=== PATIENT | male | born 1945 | race Caucasian/White ===

== ENCOUNTER 2016-03-15 16:47 | Emergency (ER) | payer OTHER ==
[~2016-03-15] VITALS: Ht 175.3 cm; Wt 90.1 kg
[~2016-03-15 16:47] MED LIST: ADULT LOW DOSE81 MG PO; B-6; BLOOD PRESSURE MED; NIACIN 50 MG TA50 MG PO; VITAMIN C100 MG PO
[2016-03-15 17:11] LABS: HEMATOCRIT 45.8 % (38.0-50.0); MCH 33.4 PG (29.0-34.0); MCHC 35.6 G/DL (30.0-36.0); MCV 93.9 FL (86-99); MEAN PLAT.VOLUME 8.5 uM^3 (9.0-12.4); PLATELET COUNT 192 K/uL (156-360); RBC DIS.WIDTH-CV 15.2 % (11.8-14.6); RBC DIS.WIDTH-SD 49.5 % (39-53); RED BLOOD COUNT 4.88 M/uL (4.00-5.50); WHITE BLOOD COUNT 16.9 K/uL (4.1-10.2)
[2016-03-15 17:19] LABS: CHLORIDE 103 mEq/L (99-109); POTASSIUM 4.5 mEq/L (3.7-5.4); SODIUM 138 mEq/L (136-147)
[2016-03-15 17:21] LABS: GLUCOSE 118 mg/dL (70-99)
[2016-03-15 17:22] LABS: ANION GAP 12 MEQ/L (2-14)
[2016-03-15 17:23] LABS: TOTAL BILIRUBIN 1.4 mg/dL (0.0-1.0)
[2016-03-15 17:24] LABS: ALKALINE PHOSPHATASE 104 IU/L (3-129)
[2016-03-15 17:25] LABS: GFR ESTIMATE (CALCULATED) > 59 mL/min/
[2016-03-15 17:26] LABS: UREA NITROGEN (BUN) 13 mg/dL (9-23)
[2016-03-15 18:08] LABS: LIPASE 16 U/L (1.0-51.0)
[2016-03-15 19:44] LABS: ADD MIUA? YES; BILIRUBIN NEGATIVE; BLOOD TRACE; COLOR YELLOW ((YELLOW)); GLUCOSE (STRIP) NEGATIVE; KETONES TRACE; LEUKOCYTES NEGATIVE; NITRITE NEGATIVE; PH, URINE 5.5 (5-8); PROTEIN (STRIP) NEGATIVE; SPECIFIC GRAVITY 1.021 (1.000-1.030); UROBILINOGEN 0.2 MG/DL (0.2-1.0)
[2016-03-15 20:07] LABS: BACTERIA NONE SEEN; CASTS NONE SEEN /LPF; CRYSTALS NONE SEEN; EPITHELIAL CELLS RARE; MUCUS NONE SEEN; PATHOLOGICAL CAST NONE SEEN; SMALL ROUND CELL NONE SEEN; UCUL ADDED? NO; WHITE BLOOD CELLS 0-5 /HPF (0-5); YEAST-LIKE CELL NONE SEEN
[2016-03-15] MEDS ORDERED: NORCO 5/3251 TABLET PO (21:28)
[2016-03-15] MEDS ORDERED: AUGMENTIN875 MG PO (21:28)
[2016-03-15 21:41] VITALS: BP 118/95
== END 2016-03-15 21:51 | disposition home or self-care (01) ==
LOC: EME 16:47
DX: K80.20 Calculus of gallbladder without cholecystitis without obstruction (principal); I10 Essential (primary) hypertension; F17.200 Nicotine dependence, unspecified, uncomplicated
CPT/HCPCS: 74177; 76705; 80053; 81003; 83690; 85027; 99281; 99285; J1885; J7030; J7040

== ENCOUNTER 2017-01-08 08:56 | Emergency (ER) | payer OTHER ==
[~2017-01-08] VITALS: Ht 170.2 cm; Wt 88.5 kg
[~2017-01-08 08:56] MED LIST changes: +AUGMENTIN875 MG PO; +NORCO 5/3251 TABLET PO
[2017-01-08 11:31] VITALS: BP 127/94
== END 2017-01-08 11:32 | disposition home or self-care (01) ==
LOC: EME 08:56
DX: S46.911A Strain of unspecified muscle, fascia and tendon at shoulder and upper arm level, right arm, initial encounter (principal); W11.XXXA Fall on and from ladder, initial encounter; E78.5 Hyperlipidemia, unspecified; I10 Essential (primary) hypertension; Z87.891 Personal history of nicotine dependence
CPT/HCPCS: 73030; 99281; 99283

== ENCOUNTER 2017-02-13 08:08 | Inpatient (IN) | payer OTHER ==
[~2017-02-13] VITALS: Ht 170.2 cm; Wt 89.9 kg
[~2017-02-13 08:08] MED LIST changes: -ADULT LOW DOSE81 MG PO; +ASPIR-LOW81 MG PO; -B-6; +BENAZEPRIL HCL10 MG PO; -BLOOD PRESSURE MED; +VITAMIN B-650 MG PO
[2017-02-13 08:30] LABS: BASOPHIL (%) 0.1 % (0-1); EOSINOPHIL (%) 0.1 % (0-5); HEMATOCRIT 44.4 % (38.0-50.0); IMMATURE GRANULOCYTE (%) 0.5 % (0.0-0.7); LYMPHOCYTE (%) 6.1 % (15-42); LYMPHOCYTE COUNT 0.9 K/uL (1.0-2.8); MCH 36.1 PG (29.0-34.0); MCV 100.2 FL (86-99); MONOCYTE (%) 3.7 % (3-12); MONOCYTE COUNT 0.6 K/uL (0-0.8); NEUTROPHIL (%) 89.5 % (45-76); NEUTROPHIL COUNT 13.5 K/uL (1.8-6.4); PLATELET COUNT 216 K/uL (156-360); RBC DIS.WIDTH-CV 13.8 % (11.8-14.6); RBC DIS.WIDTH-SD 50.9 % (39-53); RED BLOOD COUNT 4.43 M/uL (4.00-5.50)
[2017-02-13 08:40] LABS: ALBUMIN 4.4 g/dL (3.2-4.8); CHLORIDE 101 mEq/L (99-109); POTASSIUM 4.1 mEq/L (3.7-5.4); SODIUM 136 mEq/L (136-147)
[2017-02-13 08:42] LABS: GLUCOSE 141 mg/dL (70-99); TOTAL PROTEIN 7.8 g/dL (6.4-8.3)
[2017-02-13 08:44] LABS: TOTAL BILIRUBIN 0.8 mg/dL (0.0-1.0)
[2017-02-13 08:46] LABS: ALKALINE PHOSPHATASE 95 IU/L (3-129); GFR ESTIMATE (CALCULATED) > 59 mL/min/ (58.99-99999)
[2017-02-13 08:47] LABS: UREA NITROGEN (BUN) 22 mg/dL (9-23)
[2017-02-13 08:48] LABS: AST (GOT) 21 IU/L (2-34)
[2017-02-13 08:49] LABS: ALT (GPT) 33 IU/L (3-49); LIPASE 18 U/L (1.0-51.0)
[2017-02-13 09:10] LABS: TROP-I INTERPRETATION NEGATIVE; TROPONIN-I < 0.01 ng/mL (0.0-0.30)
[2017-02-13 09:56] LABS: APPEARANCE CLEAR ((CLEAR)); BILIRUBIN NEGATIVE; BLOOD NEGATIVE; COLOR YELLOW ((YELLOW)); GLUCOSE (STRIP) NEGATIVE; KETONES NEGATIVE; LEUKOCYTES NEGATIVE; NITRITE NEGATIVE; PROTEIN (STRIP) NEGATIVE; SPECIFIC GRAVITY 1.026 (1.000-1.030); UCUL ADDED? NO
[2017-02-13 13:57] LABS: Estimated Average Glucose 108 mg/dL (70-123); HEMOGLOBIN A1c (GLYCOHEMOGLOB) 5.4 % HGB (Below 5.7)
[2017-02-13] MEDS ORDERED: VITAMIN B-650 MG PO ×2 (14:09→14:10)
[2017-02-13] MEDS ORDERED: GLUCOSAMINE-CH1 EA45 PO (14:12)
[2017-02-13] MEDS ORDERED: FISH OIL 1,0001 EAC7 PO (14:12)
[2017-02-13] MEDS ORDERED: ATORVASTATIN CA10 MG PO (14:12)
[2017-02-13 17:45] VITALS: BP 154/88
[2017-02-13 19:32] VITALS: BP 154/80
[2017-02-13 23:30] VITALS: BP 109/56
[2017-02-14 03:27] VITALS: BP 110/67
[2017-02-14 06:48] LABS: MCH 36.1 PG (29.0-34.0); MCHC 35.7 G/DL (30.0-36.0); MCV 101.1 FL (86-99); PLATELET COUNT 170 K/uL (156-360); RBC DIS.WIDTH-CV 14.3 % (11.8-14.6); RBC DIS.WIDTH-SD 53.4 % (39-53); RED BLOOD COUNT 3.66 M/uL (4.00-5.50); WHITE BLOOD COUNT 14.2 K/uL (4.1-10.2)
[2017-02-14 06:49] LABS: HEMOGLOBIN 13.2 G/DL (12.5-16.6)
[2017-02-14 06:52] LABS: ALBUMIN 3.5 G/DL (3.2-4.8); ALKALINE PHOSPHATASE 62 IU/L (3-129); ALT (GPT) 151 IU/L (3-49); AST (GOT) 77 IU/L (2-34); CHLORIDE 104 MEQ/L (99-109); GFR ESTIMATE (CALCULATED) > 59 mL/min/ (58.99-99999); GLUCOSE 144 mg/dL (70-99); SODIUM 136 MEQ/L (136-147); TOTAL BILIRUBIN 1.3 MG/DL (0.0-1.0); TOTAL PROTEIN 5.6 G/DL (6.4-8.3); UREA NITROGEN (BUN) 17 mg/dL (9-23)
[2017-02-14 07:05] VITALS: BP 102/65
[2017-02-14 11:21] VITALS: BP 122/71
[2017-02-14 19:34] VITALS: BP 158/83
[2017-02-15 00:10] VITALS: BP 145/82
[2017-02-15 03:38] VITALS: BP 138/76
[2017-02-15 07:19] LABS: HEMATOCRIT 37.6 % (38.0-50.0); HEMOGLOBIN 12.9 G/DL (12.5-16.6); MCH 35.2 PG (29.0-34.0); MCHC 34.3 G/DL (30.0-36.0); MCV 102.7 FL (86-99); PLATELET COUNT 151 K/uL (156-360); RBC DIS.WIDTH-CV 14.5 % (11.8-14.6); RBC DIS.WIDTH-SD 54.5 % (39-53); RED BLOOD COUNT 3.66 M/uL (4.00-5.50); WHITE BLOOD COUNT 9.9 K/uL (4.1-10.2)
[2017-02-15 07:20] VITALS: BP 124/78
[2017-02-15 07:45] LABS: ALBUMIN 3.5 G/DL (3.2-4.8); ALKALINE PHOSPHATASE 58 IU/L (3-129); ALT (GPT) 97 IU/L (3-49); CHLORIDE 106 MEQ/L (99-109); CREATININE 1.2 MG/DL (0.6-1.3); GFR ESTIMATE (CALCULATED) > 59 mL/min/ (58.99-99999); GLUCOSE 116 mg/dL (70-99); POTASSIUM 3.7 MEQ/L (3.7-5.4); SODIUM 139 MEQ/L (136-147); TOTAL BILIRUBIN 1.4 MG/DL (0.0-1.0); TOTAL PROTEIN 5.9 G/DL (6.4-8.3); UREA NITROGEN (BUN) 20 mg/dL (9-23)
[2017-02-15 07:46] LABS: AST (GOT) 34 IU/L (2-34)
[2017-02-15] MEDS ORDERED: OXYCODONE HCL5 MG PO (10:19)
[2017-02-15] MEDS ORDERED: AUGMENTIN875 MG PO (10:19)
== END 2017-02-15 12:48 | disposition home or self-care (01) | DRG 418 ==
LOC: EME 08:08 → SDC 14:56 → ENRESERV 16:59 → 2EAST 17:00 → 2SOUTH 17:00 → ENRESERV 17:09 → 2EAST 17:34
PROVIDERS: Emergency Medicine; Surgery
PROC: 0F944ZX Drainage of Gallbladder, Percutaneous Endoscopic Approach, Diagnostic (ICD-10-PCS; principal; 2017-02-13)
PROC: 0FT44ZZ Resection of Gallbladder, Percutaneous Endoscopic Approach (ICD-10-PCS; principal; 2017-02-13)
DX: K80.44 Calculus of bile duct with chronic cholecystitis without obstruction (principal); I10 Essential (primary) hypertension; R73.9 Hyperglycemia, unspecified; K57.90 Diverticulosis of intestine, part unspecified, without perforation or abscess without bleeding; R60.9 Edema, unspecified; K82.1 Hydrops of gallbladder; E78.5 Hyperlipidemia, unspecified; K82.8 Other specified diseases of gallbladder; E66.9 Obesity, unspecified; K76.0 Fatty (change of) liver, not elsewhere classified; Z91.19 Patient's noncompliance with other medical treatment and regimen; Z87.891 Personal history of nicotine dependence; Z68.31 Body mass index [BMI] 31.0-31.9, adult
CPT/HCPCS: 76705; 80053; 81003; 83036; 83690; 84484; 85025; 85027; 87070; 87075; 87076; 87185; 87205; 88304; 93005; 99281; 99285; G0378; J0131; J0330; J1170; J1650; J2543; J2710; J3010; J7030; J7050; S0074